=== PATIENT | female | born 1995 | race Caucasian/White ===

== ENCOUNTER 2019-02-17 11:34 | Outpatient (CLI) | payer OTHER ==
[~2019-02-17] VITALS: Ht 160 cm; Wt 56.0 kg
[2019-02-17 11:57] VITALS: BP 133/84
[2019-02-17] MEDS ORDERED: UNIS25TA3 PO (12:03)
[2019-02-17] MEDS ORDERED: GLYCCAP PO (12:03)
[2019-02-17] MEDS ORDERED: PRENTAB9 PO (12:03)
[2019-02-17] MEDS ORDERED: LR 1,000 ML IV SCH (12:30)
[2019-02-17 12:44] VITALS: BP 110/74
--- NOTE | 2019-02-17 12:45 | IPNPDOC ---
Text Note Date of Service The patient was seen on 02/17/19. NOTE 23yo at 32w3d by LMP c/w 11wk US presents c/o several episodes of passage of mucous that has a small amount of bright red blood in it. She believes it is passing vaginally, but it only occurs when she is urinating. She has worn a pad and there has never been any blood or mucous on it. She denies urinary urgency, dysuria. Does report urinary frequency. Had one episode of left flank pain that lasted several hours this morning but is now gone. Denies LOF, ctx, cramping, fevers bowel symptoms. PMH: beta thal minor PSH: wisdom teeth Meds: PNV NKDA Vitals reviewed, wnl Gen WDWN. Resting comfortably, denies pain Ab soft, non-tender Back +left CVAT (mild), no right CVAT (Chap RN Peg) Spec: cervix appears closed, no old blood or active bleeding noted. Physiologic white vaginal discharge present Ferning neg, Nitrazine neg SCE: /-2, unchanged on recheck 2 hours later FHT: Cat I, no decels. [place]: initially CTX Q1-3mins, following fluid resuscitation Q4-6mins, palpate mild and pt does not feel them TAUS: SIUP, cephalic, +FM, +FCA, MVP 5.5cm UA: 3+ blood, WBC 9, RBC too numerous to count, Bacteria 2+, LE neg, nitrite neg Renal US (prelim): mild b/l hydronephrosis, 8mm echogenic focus in right kidney A/P: Bleeding likely from urinary tract, most likely has passed or is passing a left kidney stone given the presence of a stone on the right and episode of left flank pain this morning. WBC and bacteria on UA, however no dysuria or current flank pain, and LE/nitrite neg therefore I am less concerned about cystitis or pyelonephritis. Will await urine culture before prescribing antibiotics; instructed pt to call [facility] on Monday for culture results to determine if she needs antibiotics. 1cm dilated but unchanged on repeat exam 2 hours later, also not feeling cont ractions so likely false labor. Since no bleeding was seen on speculum exam, and another etiology of her bleeding has been found, no need to administer Rhogam. She did receive routine prophylactic rhogam about 3 weeks ago. -Rx for flomax x 2 weeks. Encouraged increased hydration to facilitate stone passage -F/u urine culture; call [facility] for results on Monday -Return precautions discussed at length -Med rec completed MD MAURICIO Maciel TONI M. MD Feb 17, 2019 12:45
[2019-02-17 12:47] LABS: APPEARANCE, URINE CLOUDY (CLEAR); BACTERIA, URINE AUTO 3+ (NEGATIVE); BILIRUBIN, URINE AUTO NEGATIVE (NEGATIVE); BLOOD, URINE BLOOD 3+ (NEGATIVE); COLOR, URINE YELLOW (YELLOW); GLUCOSE, URINE (UA) AUTO 1+ mg/dL (NEGATIVE); KETONE, URINE AUTO NEGATIVE (NEGATIVE); LEUKOCYTE ESTERASE, URINE AUTO NEGATIVE (NEGATIVE); MUCUS, URINE SMALL (NEGATIVE); NITRITE, URINE AUTO NEGATIVE (NEGATIVE); PROTEIN, URINE AUTO 2+ mg/dL (NEGATIVE); RBC, URINE AUTO TNTC /HPF (0-3); SPECIFIC GRAVITY URINE AUTO 1.017 (1.002-1.035); SQUAMOUS EPITHELIAL CELL UR AU 6 /HPF (0-6); UROBILINOGEN, URINE AUTO 0.2 mg/dL (0.0-2.0); WBC, URINE AUTO 7 /HPF (0-3)
[2019-02-17 13:44] LABS: APPEARANCE, URINE CLOUDY (CLEAR); BACTERIA, URINE AUTO 2+ (NEGATIVE); BILIRUBIN, URINE AUTO NEGATIVE (NEGATIVE); BLOOD, URINE BLOOD 3+ (NEGATIVE); COLOR, URINE YELLOW (YELLOW); GLUCOSE, URINE (UA) AUTO 1+ mg/dL (NEGATIVE); KETONE, URINE AUTO NEGATIVE (NEGATIVE); LEUKOCYTE ESTERASE, URINE AUTO NEGATIVE (NEGATIVE); MUCUS, URINE SMALL (NEGATIVE); NITRITE, URINE AUTO NEGATIVE (NEGATIVE); PROTEIN, URINE AUTO 2+ mg/dL (NEGATIVE); RBC, URINE AUTO TNTC /HPF (0-3); SPECIFIC GRAVITY URINE AUTO 1.016 (1.002-1.035); SQUAMOUS EPITHELIAL CELL UR AU 1 /HPF (0-6); UROBILINOGEN, URINE AUTO 0.2 mg/dL (0.0-2.0); WBC, URINE AUTO 9 /HPF (0-3)
[2019-02-17] MEDS ORDERED: TAMSULOSIN 0.4 MG CAP PO ONE (14:00)
--- NOTE | 2019-02-17 19:53 | REP ---
REASON: Flank pain on the right. PRIORS: None. The right kidney measures 10.4 x 4.8 x 4.6 cm and left 11.5 x 4.7 x 5.4 cm. The renal cortical echoes are normal. There is mild bilateral hydronephrosis. The urinary bladder is empty. IMPRESSION:Mild bilateral hydronephrosis. Electronically Signed by Israel Coe DO 02/18/2019 10:02 A
== END 2019-02-17 16:55 | disposition home or self-care (01) ==
LOC: M LDO 11:34
PROVIDERS: ATTEND General Practice
DX: O26.853 Spotting complicating pregnancy, third trimester (principal); O26.833 Pregnancy related renal disease, third trimester; N13.30 Unspecified hydronephrosis; Z3A.32 32 weeks gestation of pregnancy
CPT/HCPCS: 59025; 76775; 81001; 87086; 96360; 96361; G0378; G0463

== ENCOUNTER → 2019-04-06 | Outpatient (CLI) | payer OTHER ==
[~2019-04-06] VITALS: Ht 160 cm; Wt 59.1 kg
[~2019-04-06] MED LIST: ACET65SU PR; COLA100C5 PO; GLYCCAP PO; IBUP80TA PO; PRENTAB9 PO; UNIS25TA3 PO
[2019-04-06 12:15] VITALS: BP 133/89
[2019-04-06 13:28] VITALS: BP 112/69
--- NOTE | 2019-04-06 15:14 | IPNPDOC ---
Text Note Date of Service The patient was seen on 04/06/19. NOTE patient is a 24 yo G1 @ 39+wks gestation presents with concern for mild contractions every 8-10 minutes. denies f/n/v/change in vision/GILBERT. vitals: normal NAD abd: gravid, nd, soft, nt fht: 150/mod eloisa/pos accel/no decel toco: irregular contractions ce (per nurse): 2-3cm a/p patient not in labor, return precautions given. f/u as regularly scheduled. DO Danna VS,Luli, I+O VS, Fishbone, I+O Vital Signs Date Time Temp Pulse Resp B/P (MAP) Pulse Ox O2 Delivery O2 Flow Rate FiO2 04/06/19 13:28 115 18 112/69 (83) 04/06/19 12:15 99.3 MARIUSZ LÓPEZ DO Apr 06, 2019 15:14
== END ==
LOC: M LDO 12:00
PROVIDERS: ATTEND Obstetrics & Gynecology
DX: O47.1 False labor at or after 37 completed weeks of gestation (principal); Z3A.39 39 weeks gestation of pregnancy
CPT/HCPCS: 59025; G0378; G0463

== ENCOUNTER 2019-04-08 00:54 | Inpatient (IN) | payer OTHER ==
[~2019-04-08] VITALS: Ht 160 cm; Wt 60.1 kg
[~2019-04-08 00:54] MED LIST changes: -ACET65SU PR; -COLA100C5 PO; -IBUP80TA PO
[2019-04-08 01:32] LABS: HEMATOCRIT 31.2 % (36.0-47.0); HEMOGLOBIN 10.2 g/dl (12.0-15.5); MEAN CORPUSCULAR HEMOGLOBIN 29.9 pg (27.0-33.0); MEAN CORPUSCULAR HGB CONC 32.7 g/dl (32.0-36.5); MEAN CORPUSCULAR VOLUME 91.5 fl (80.0-96.0); PLATELET COUNT, AUTOMATED 235 10^3/uL (150-450); RED BLOOD COUNT 3.41 10^6/uL (4.00-5.40); WHITE BLOOD COUNT 16.2 10^3/uL (4.0-10.0)
[2019-04-08] MEDS ORDERED: OXYTOCIN 30 UNITS IN 0.9% NaCl 500ML IV BAG (J2590) As Ordered ONE (01:34)
[2019-04-08] MEDS ORDERED: LACTATED RINGER'S 1000 ML IV STA (02:12)
[2019-04-08] MEDS ORDERED: LR 1,000 ML IV SCH (02:12)
[2019-04-08] MEDS ORDERED: OXYTOCIN DRIP 30 UNITS in IV 1 EA IV SCH (02:16)
[2019-04-08] MEDS ORDERED: ACETAMINOPHEN 650 MG SUPP PR PRN (02:30)
[2019-04-08] MEDS ORDERED: MEASLES,MUMPS,RUBELLA VACCINE INJ (MMR-II) (90707) SC SCH (02:30)
[2019-04-08] MEDS ORDERED: RHOGAM 300 MCG (1500 IU) INJ (J2790) IM SCH (02:30)
[2019-04-08] MEDS ORDERED: DIBUCAINE 1% OINTMENT 30GM TOP PRN (02:30)
[2019-04-08] MEDS ORDERED: DOCUSATE SODIUM 100 MG CAP PO PRN (02:30)
[2019-04-08] MEDS ORDERED: IBUPROFEN 800 MG TAB PO PRN (02:30)
--- NOTE | 2019-04-08 02:34 | HPEPDOC ---
Obstetrical History & Physical General Date of Admission Apr 08, 2019 at 01:14 Primary Care Physician: MARIUSZ LÓPEZ DO History of Present Illness Patikim is a 24 yo G1 @39+4wks presents to l&d with complaint of SROM @ 0030. patient was checked to be complete and progressed to deliver vigorous baby boy. See Delivery summary for details. Chief Complaint: Contractions, term, Rupture of membranes Information Provided By: Patient Age: 24 : 1 Term: 0 Abortions: 0 Care Care: Good Care Dating Final EDC: Apr 11, 2019 Final EDC for Daily Update: Apr 11, 2019 Final EDC by: LMP LMP: Jul 05, 2018 Past Medical History Past Medical History Medical History beta thalasima minor Surgical History: [place] teeth Family History Significant Family History: No pertinent family hx Social History Marital Status: * Smoker: non-smoker Alcohol: Denies Drugs: denies Imunizations Tdap status: current Influenza Status: needs Allergies Coded Allergies: No Known Allergies (Verified Allergy, Unknown, 02/17/19) Medications Scheduled No.137/Iron/Folic Acd ( Vitamin Tablet) 1 Each Tablet, 1 TAB PO DAILY Vit B12/Folic Acid/B6/Aa No.15 (Glycotrol Capsule) 1 Each Capsule, 1 CAP PO DAILY Scheduled PRN Doxylamine Succinate (Unisom Sleep Aid) 25 Mg Tablet, 1 TAB PO QPM PRN for SLEEP Physical Examination Physical Examination GENERAL: Alert and oriented times three. BREAST: . ABDOMEN: Gravid and non-tender to touch. FETUS: Is vertex (VTX) by sterile vaginal examination (SVE), fetus is vertex (VTX) by Cliff. HEART RATE: Regular rate and rhythm. LUNGS: Clear to auscultation (CTA). EXTREMITIES: No edema. No clonus. Deep tendon reflexes (DTRs) + . Laboratory Data 24H LABS Laboratory Tests 2 04/08/19 01:17: Serology Scanned Report Hepatitis B Testing 04/08/19 01:24: Nucleated Red Blood Cells % (auto) 0.0 CBC/BMP Laboratory Tests 04/08/19 01:24 Red Blood Count 3.41 L, Mean Corpuscular Volume 91.5, Mean Corpuscular Hemoglobin 29.9, Mean Corpuscular Hemoglobin Concent 32.7, Red Cell Distribution Width 15.1 H Pertinent Laboratoy Data Blood Type: O- RBC Antibody Screen: Negative HIV: Negative Hepatitis B: Negative Hepatitis C: Unknown Rapid Plasma Reagin: Nonreactive Rubella: Immune Chlamydia/Gonorrhea: Negative Group B Streptococcus: Negative Anatomy Ultrasound Placenta Location: Posterior Normal Anatomy: Yes Placenta Previa: No Steroid Therapy Steroid Therapy: No Vaginal Examination Dilation: complete Effacement: 100% Station: +3 Cervical Consistency: Soft Cervical Position: Anterior Presentation: Cephalic presentation Position: Vertex (occiput) Assessment Heart Rate (FHR): 130 Variability: Moderate Decelerations: Variable Tocometer Contractions: Yes Frequency: regular, every 2-2 min. Duration: greater than 60 seconds Assessment/Plan Assessment patient is a 24 yo G1 now P1 s/p uncomplicated Plan Admit for care General Ophthalmologist and consent. Diet: regular Group B Streptococcus (GBS) negative. Labs and intravenous (IV) per unit protocol. Counseled on pitocin transfer to mother baby unit once patient meets criteria DO Danna Labor and Delivery Counseling Counseled patient on risk of bleeding requiring blood transfusion. Risks of blood transfusion discussed. MARIUSZ LÓPEZ DO Apr 08, 2019 02:34
--- NOTE | 2019-04-08 02:45 | DNPDOC ---
[facility] Delivery Note Delivery Note DATE OF DELIVERY: 08Apr2019 PREDELIVERY DIAGNOSIS: 39+4weeks' gestation and labor. POST DELIVERY DIAGNOSIS: Delivered. PROCEDURE: BARI LANDSCAPER: Isaiah Mendez DO ANESTHESIA: none ESTIMATED BLOOD LOSS: 200cc FINDINGS: 6 pound 9 ounce infant, Score 7/8, nuchal cord times 2, left compound hand. DELIVERY SUMMARY: Patient presented c/c/+3 with spontaneous ruptured of membrane at 39+4wks gestation. With good maternal effort, baby delivered OA, restituted LOT. nuchal cord x 2 reduced. anterior shoulder delivered followed baby posterior left shoulder and compound hand. Body followed with ease. Baby placed on maternal abdomen. Cord allowed to stop pulsating. Cord clamped x 2 and cut by FOB. Pitocin bolus started. cord blood collected for routine lab. placenta delivered spontaneously. fundus massaged firm. Inspection revealed small first decree tear, not bleeding and did not require repair. EBL 200cc. mother and baby bonding when I left the room. DO MARIBEL Clay LUAT N. DO Apr 08, 2019 02:45
[2019-04-08] MEDS ORDERED: RHOGAM 300 MCG (1500 IU) INJ (J2790) IM ONE (04:15)
[2019-04-08 04:45] VITALS: BP 113/70
--- NOTE | 2019-04-08 08:25 | IPNPDOC ---
Progress Note Date of Service: Apr 08, 2019 Day#: 0 Progress Note SUBJECT: patient is a 24 yo S/P uncomplicated ppd #0. She is bonding with baby well. she is ambulating, urinating, tolerating po without problem. she plans on bottle feeding. OBJECTIVE: VITAL SIGNS: Within normal limits, afebrile. Alert and oriented times three. Abdomen: Fundus firm at U-2. Soft, NTTP. ASSESSMENT: ppd #0, doing well. PLAN: 1. routine pp care. 2. Tylenol and Motrin for pain. 3. Encourage ambulation. 4. anticipate d/c home ppd #2 Le, do VS, I&O, 24H, Fishbone Vital Signs/I&O Vital Signs Date Time Temp Pulse Resp B/P (MAP) Pulse Ox O2 Delivery O2 Flow Rate FiO2 04/08/19 04:45 98.8 95 18 113/70 (84) 97 I&O- Last 24 Hours up to 6 AM 04/08/19 06:00 Output Total 200 ml Balance -200 ml Laboratory Data 24H LABS Laboratory Tests 2 04/08/19 01:17: Serology Scanned Report Hepatitis B Testing 04/08/19 01:24: Nucleated Red Blood Cells % (auto) 0.0 CBC/BMP Laboratory Tests 04/08/19 01:24 Red Blood Count 3.41 L, Mean Corpuscular Volume 91.5, Mean Corpuscular Hemoglobin 29.9, Mean Corpuscular Hemoglobin Concent 32.7, Red Cell Distribution Width 15.1 H MARIUSZ LÓPEZ DO Apr 08, 2019 08:25
[2019-04-08] MEDS: PRENATAL VITAMINS CHEWABLE TABLET PO SCH (11:01)
[2019-04-08 17:50] VITALS: BP 121/76
[2019-04-09] MEDS ORDERED: ACET65SU PR (05:12)
[2019-04-09] MEDS ORDERED: COLA100C5 PO (05:12)
[2019-04-09] MEDS ORDERED: IBUP80TA PO (05:12)
--- NOTE | 2019-04-09 05:18 | OBDS ---
[facility] Obstetrical Discharge Sum. Obstetrical Discharge Summary Chemical Handler/Provider: MARIUSZ LÓPEZ DO Date: Apr 09, 2019 : 1 Term: 1 Pre-term: 0 Abortions: 0 Livin VDRL: Non-Reactive Rh: Negative Rubella: Immune Infant Sex: Male Weight: pounds (6), ounces (9) A/P, Post Course List any complications Admission diagnosis: Gravid @39+4wks spontaneous ruptured of membranes Discharge diagnosis: Condition at Discharge: stable Discharge Instructions: home Activity: at ruddy Diet: regular Medications: fill at [facility] Follow-up: 6wks Hospital Course: Patient presented to labor and delivery in labor. Progressed to spontaneous vaginal delivery. course uncomplicated, meeting criteria for discharge and was discharged on day #2. VS: Reviewed GEN: WNWD, NAD ABD: Soft, NT, Uterus @ U EXT: no edema, negative rolly's sign A/P: #2, doing well. Bottle feeding. - Continue care - Pain Control: ibuprofen, tylenol - Bowel Regime: Colace - Encourage hydration - Contraception: Condoms, counseled on use - Pelvic Rest for 6 wks - Discussed strict return precautions, discussed delayed PPH, Mastitis, Endometritis, Depression, VTE - Follow up in 6 wks for visit. DO MARIBEL Garcia LUAT N. DO Apr 08, 2019 02:49 GELACIO ROYAL DO Apr 09, 2019 05:18
[2019-04-09 06:42] VITALS: BP 108/99
[2019-04-09] MEDS: PRENATAL VITAMINS CHEWABLE TABLET PO SCH (08:27)
--- NOTE | 2019-04-09 17:53 | IPN ---
DATE: 04/09/2019 This and the patient requested circumcision of their male after discussing the risks and benefits of circumcision, the medical and nonmedical indications, the penile block and aftercare. Expressed understanding of penile block, aftercare and bleeding, signed the consent form. All questions were answered. 20-minute discussion. Await clearance by the business performance analyst.
[2019-04-09 18:00] VITALS: BP 120/65
[2019-04-10 05:52] VITALS: BP 118/80
[2019-04-10] MEDS: PRENATAL VITAMINS CHEWABLE TABLET PO SCH (07:43)
== END 2019-04-10 12:10 | disposition home or self-care (01) | DRG 807 ==
LOC: M LDO 00:54 → M LDI 01:14 → M OBS 06:41
PROVIDERS: ADMIT Obstetrics & Gynecology; ATTEND Obstetrics & Gynecology
PROC: 10E0XZZ Delivery of Products of Conception, External Approach (ICD-10-PCS; principal; 2019-04-08)
DX: O69.1XX0 Labor and delivery complicated by cord around neck, with compression, not applicable or unspecified (principal); Z37.0 Single live birth; O70.0 First degree perineal laceration during delivery; Z3A.39 39 weeks gestation of pregnancy; O32.6XX0 Maternal care for compound presentation, not applicable or unspecified

== ENCOUNTER 2020-09-24 11:16 | Emergency (ER) | payer OTHER ==
[~2020-09-24] VITALS: Ht 157.5 cm; Wt 61.4 kg
[~2020-09-24 11:16] MED LIST changes: +ACET65SU PR; +COLA100C5 PO; +IBUP80TA PO
[2020-09-24] MEDS ORDERED: KETOROLAC TROMETHAMINE 10 MG TAB PO ONE (12:05)
[2020-09-24] MEDS ORDERED: ONDANSETRON 4 MG ORAL DISINTEGRATING TAB PO ONE (12:10)
--- NOTE | 2020-09-24 12:56 | REP ---
INDICATION: flank pain L COMPARISON: None. TECHNIQUE: Helical scanning is acquired in 4 mm axial images were reformatted. Coronal and sagittal MPR images were generated and reviewed. FINDINGS: Preliminary digital instrument engineer radiograph demonstrates a normal bowel gas pattern and metallic umbilical jewelry. The lung bases are clear on axial CT images. The uppermost slice in the imaging field of view demonstrates a 12.5 mm slightly hyperattenuating nodule in the right breast most consistent with proteinaceous cyst. This is incompletely seen however. It appears to have some wall calcification. Consider right breast sonography. The liver and the spleen are normal in size homogeneous in texture. There is radiopaque granular material in the dependent portion the gallbladder consistent with cholelithiasis. 12 mm in greatest diameter. No definite high attenuation material is seen in the distal choledochocele. No pancreatic abnormality is observed. No pancreatic ductal dilation is seen. The kidneys are morphologically intact no hydronephrosis or nephrolithiasis seen. Urinary bladder is unremarkable. There are small follicle cyst in the right ovary. Small and large intestinal bowel loops are normal in the abdomen and pelvis. A normal appendix is seen along the right pelvic sidewall. No uterine abnormality is observed. No abdominal wall defect or bony destructive lesion is seen. IMPRESSION: Cholelithiasis. Dilated common bile 9 duct 12 mm rule out choledocholithiasis. There is a 12.5 mm nodule in the right breast possible cyst; consider right breast sonography. No urinary tract calculus or hydronephrosis is seen. <Electronically signed by Murali Dumont > 09/24/20 [id number]
[2020-09-24 13:50] LABS: BASO % 0.1 % (0.0-1.0); EOS % 0.1 % (0.0-3.0); HEMATOCRIT 38.5 % (36.0-47.0); HEMOGLOBIN 13.4 g/dl (12.0-15.5); LYMPH % 12.3 % (24.0-44.0); MEAN CORPUSCULAR HEMOGLOBIN 29.7 pg (27.0-33.0); MEAN CORPUSCULAR HGB CONC 34.8 g/dl (32.0-36.5); MEAN CORPUSCULAR VOLUME 85.4 fl (80.0-96.0); MONO # 0.6 10^3/uL (0.0-0.8); MONO % 7.1 % (2.0-8.0); NEUTROPHILS # 6.3 10^3/uL (1.5-8.5); NEUTROPHILS % 80.1 % (36.0-66.0); PLATELET COUNT, AUTOMATED 238 10^3/uL (150-450); RED BLOOD COUNT 4.51 10^6/uL (4.00-5.40); WHITE BLOOD COUNT 7.9 10^3/uL (4.0-10.0)
[2020-09-24 14:21] LABS: ALBUMIN 4.3 GM/DL (3.2-5.2); ALT/SGPT 241 U/L (12-78); BILIRUBIN,DIRECT 0.5 MG/DL (0.0-0.2); LIPASE 146 U/L (73-393); TOTAL PROTEIN 7.6 GM/DL (6.4-8.2)
--- NOTE | 2020-09-24 14:28 | REP ---
INDICATION: possible choledocholithiasis. COMPARISON: Abdomen/pelvis CT performed earlier today. TECHNIQUE: Multiple ultrasonographic images of the abdominal right upper quadrant. FINDINGS: There are multiple mobile gallbladder calculi. There is no gallbladder wall thickening or pericholecystic fluid. There is no intrahepatic biliary duct dilatation. However, the common biliary duct is dilated measuring up to 12 mm in diameter. No common biliary calculus is identified by ultrasound. The hepatic parenchyma is homogeneous and otherwise unremarkable. There are no hepatic masses or cysts. The pancreas is unremarkable. There is no dilatation of the pancreatic duct. The right kidney measures 10.1 x 3.4 x 3.5 cm and is normal size. There is no right renal calculus or hydronephrosis. There is no right renal solid or cystic mass. The aorta is obscured. There is no right upper quadrant abdominal free fluid. IMPRESSION: The common biliary duct is dilated measuring up to 12 mm. No common biliary duct calculus is identified by ultrasound. No definite intrahepatic biliary ductal dilatation is identified at this time. There are multiple mobile small gallbladder calculi. There is no ultrasound evidence of acute cholecystitis. MRCP is recommended for further evaluation. The pancreatic duct is not dilated. There is no abdominal right upper quadrant free fluid. <Electronically signed by Omero Townsend > 09/24/20 [id number]
[2020-09-24 16:11] LABS: HEPATITIS B SURFACE ANTIGEN NEGATIVE (NEGATIVE)
[2020-09-24 16:39] LABS: HEPATITIS B CORE ANTIBODY IGM NEGATIVE (NEGATIVE); HEPATITIS C VIRUS ABY INDEX < 0.0 INDEX (<0.8)
[2020-09-24 16:40] LABS: HEPATITIS A ANTIBODY IGM NEGATIVE (NEGATIVE)
[2020-09-24] MEDS ORDERED: NS 1,000 ML IV ONE (18:15)
--- NOTE | 2020-09-24 22:05 | REPVR ---
PROCEDURE INFORMATION: Exam: MR Abdomen Without Contrast, MRCP Exam date and time: 09/24/2020 9:46 PM Age: 25 years old Clinical indication: Abdominal pain; Epigastric; Patient HX: Ruq pain; Additional info: R/O choledocolithiases TECHNIQUE: Imaging protocol: MR of the abdomen without contrast. Exam focused on the bile ducts and pancreatic ducts. 3D MRCP images were acquired and processed without radiologist supervision. 3D rendering (Not supervised by radiologist): MIP and/or 3D reconstructed images were created by the technologist. COMPARISON: GALLBLADDER US 09/24/2020 1:49 PM FINDINGS: Liver: No mass. Gallbladder and bile ducts: There are gallstones present. No evidence of cholecystitis demonstrated. 4 mm filling defect in the distal common bile duct consistent with choledocholithiasis. Common bile duct measures 8 mm maximally. No significant intrahepatic biliary dilatation. Pancreas: Unremarkable. No ductal dilation. Spleen: 1.3 cm simple cyst posterior aspect of the spleen. Spleen otherwise unremarkable. Intraperitoneal space: No fluid collection. IMPRESSION: 1. There are gallstones present. No evidence of cholecystitis demonstrated. 2. 4 mm filling defect in the distal common bile duct consistent with choledocholithiasis. Common bile duct measures 8 mm maximally. No significant intrahepatic biliary dilatation. 3. 1.3 cm simple cyst posterior aspect of the spleen. Spleen otherwise unremarkable. Electronically signed by: Chito Bello On 09/24/2020 22:05:33 PM
[2020-09-24] MEDS ORDERED: ONDANSETRON 4MG/2ML VIAL IV ONE (22:55)
[2020-09-24 23:50] VITALS: BP 126/79
[2020-09-25 00:02] LABS: RSV AMPLIFICATION NEGATIVE (NEGATIVE)
== END 2020-09-24 23:52 | disposition short-term general hospital (02) ==
LOC: M ED 11:16
DX: K80.20 Calculus of gallbladder without cholecystitis without obstruction (principal); N60.01 Solitary cyst of right breast; D73.4 Cyst of spleen; R74.01 Elevation of levels of liver transaminase levels; K83.9 Disease of biliary tract, unspecified
CPT/HCPCS: 74176; 74181; 76705; 80047; 80076; 81001; 83690; 84702; 85025; 86705; 86709; 86803; 87340; 87631; 96361; 96374; 99284; J2405; Q0162

== ENCOUNTER 2020-11-09 06:46 | Day surgery (SDC) | payer OTHER ==
[~2020-11-09] VITALS: Ht 157.5 cm; Wt 59.8 kg
[~2020-11-09 06:46] MED LIST changes: +LIDOCAINE 1% MDV 20ML VIAL SQ PRN; +LR 1,000 ML IV ONE; +MIDAZOLAM INJ 2MG/2ML VIAL (J2250 PER 1MG) As Ordered ONE
[2020-11-09] MEDS ORDERED: fentaNYL 100 MCG/2 ML INJECTION (J3010) As Ordered ONE ×2 (06:47→08:30)
[2020-11-09] MEDS ORDERED: ROCURONIUM BROMIDE 50 MG/5 ML VIAL As Ordered ONE (06:49)
[2020-11-09] MEDS ORDERED: propofoL 200 MG/20 ML VIAL As Ordered ONE (06:49)
[2020-11-09] MEDS ORDERED: LIDOCAINE 2% 100MG/5ML SDV (FOR ANES.) As Ordered ONE (06:49)
[2020-11-09] MEDS ORDERED: GLYCOPYRROLATE INJ 0.2 MG/ML 2 ML VIAL As Ordered ONE (06:56)
[2020-11-09] MEDS ORDERED: ONDANSETRON 4MG/2ML VIAL As Ordered ONE (06:57)
[2020-11-09] MEDS ORDERED: dexameTHASONE 4 MG/ML 1ML VIAL (J1100 PER 1MG) As Ordered ONE (06:57)
[2020-11-09] MEDS ORDERED: BUPIVACAINE/EPIN 0.25% 30 ML VIAL As Ordered ONE (07:50)
[2020-11-09] MEDS ORDERED: SCOPOLAMINE 1MG TRANSDERMAL PATCH TOP ONE (08:10)
[2020-11-09] MEDS ORDERED: ACETAMINOPHEN 1000MG 100ML IV BTL (OFIRMEV) (J0131 PER 10MG) As Ordered ONE ×2 (08:59→09:00)
[2020-11-09] MEDS ORDERED: KETOROLAC 60MG 2ML VIAL As Ordered ONE (08:59)
[2020-11-09] MEDS ORDERED: HYDROMORPHONE HCL 0.5 MG/ 0.5 ML SYRINGE (J1170 PER 1) IV PRN (09:55)
[2020-11-09] MEDS ORDERED: fentaNYL 100 MCG/2 ML INJECTION (J3010) IV PRN (09:55)
[2020-11-09] MEDS ORDERED: ONDANSETRON 4MG/2ML VIAL IV PRN (09:55)
[2020-11-09] MEDS ORDERED: LR 1,000 ML IV SCH (09:55)
[2020-11-09] MEDS ORDERED: oxyCODONE 5MG TAB PO PRN (09:55)
[2020-11-09] MEDS ORDERED: NORCO, ANEXSIA 5/325MG TABLET (HYDROcodone/ACETAMINOPHEN) PO PRN (09:55)
[2020-11-09 10:25] VITALS: BP 131/79
--- NOTE | 2020-11-09 11:35 | RO ---
OPERATIVE NOTE DATE OF OPERATION: 11/09/2020 PREOPERATIVE DIAGNOSIS: Symptomatic cholelithiasis. POSTOPERATIVE DIAGNOSIS: Symptomatic cholelithiasis. PROCEDURE: Robotic cholecystectomy. SURGEON: Omero Boyd DO KILN HEAD HOUSE OPERATOR: Lanie Aguilar ANESTHESIA: General. EBL: 5. COMPLICATIONS: None. INDICATIONS FOR PROCEDURE: The patient is a 25-year-old female who presents with symptomatic cholelithiasis. Recommendation was to proceed with a robotic cholecystectomy. Risks and benefits of the procedure not limited to but including bleeding, infection, hernia, damage to surrounding structures and need for further surgery were discussed in detail with the patient. Informed consent was obtained and procedure was planned. DESCRIPTION OF PROCEDURE: The patient was brought back to operating room 7. After sufficient sedation, the abdomen was sterilely prepped and draped. Next, time out was done to confirm proper patient and proper procedure. Following that an 8 mm incision was made in the left upper quadrant, and the Veress needle was inserted. The abdomen was insufflated to 15 mmHg. Veress needle was then removed. An 8 mm Optiview port was used to gain access to the abdomen. Once the abdomen was entered, three more ports were placed across the right upper quadrant. The robot was then docked to the ports. The fundus of the gallbladder was elevated up towards the right shoulder. Cystic duct and cystic artery were carefully dissected free u sing combination of blunt and sharp dissection. Once they were both correctly identified they were both doubly clipped and cut. The gallbladder was then dissected free from the gallbladder fossa, placed inside a 5 mm Endo Catch bag and brought out through the right lateral port site. Once the gallbladder was removed, the right upper quadrant cauterized to control hemostasis. The abdomen was desufflated. Skin incisions were closed with 4-0 Vicryl subcuticular sutures. The abdomen was cleaned and dried. Steri-Strips, 4 x 4 and tape were applied. This ended the procedure.
== END 2020-11-09 11:09 | disposition home or self-care (01) ==
LOC: M SDC 06:46
PROVIDERS: ATTEND Surgery
DX: K80.10 Calculus of gallbladder with chronic cholecystitis without obstruction (principal)
CPT/HCPCS: 47562; 81025; 88304; J0131; J1100; J1885; J2250; J2405; J3010; S2900